=== PATIENT | male | born 1975 | race Caucasian/White ===

== ENCOUNTER 2016-09-08 10:19 | Emergency (ER) | payer SELFPAY | END 2016-09-08 15:23 | disposition home or self-care (01) | LOC: ER 10:19 | DX: K40.30 Unilateral inguinal hernia, with obstruction, without gangrene, not specified as recurrent (principal); F17.210 Nicotine dependence, cigarettes, uncomplicated | CPT/HCPCS: 36415; Q9963; Q9967 ==

== ENCOUNTER → 2016-09-09 | Day surgery (SDC) | payer SELFPAY ==
[~2016-09-09] VITALS: Ht 172.7 cm; Wt 106.1 kg
== END | disposition home or self-care (01) ==
LOC: SDC 14:09
DX: K40.31 Unilateral inguinal hernia, with obstruction, without gangrene, recurrent (principal); F17.210 Nicotine dependence, cigarettes, uncomplicated
CPT/HCPCS: C1781; J1885; J2704